=== PATIENT | female | born 1945 | race Caucasian/White ===

== ENCOUNTER → 2023-08-16 07:36 | Outpatient (REF) | payer MEDICARE, OTHER, SELFPAY ==
[2023-08-16 08:08] LABS: % Basophils 0.8 % (0-2); % Immature Granulocytes 0.5 % (0-0.5); % Lymphocytes 27.7 % (20.5-51.1); % Monocytes 5.5 % (1.7-9.3); % Neutrophils 59.5 % (42.2-75.2); Absolute Basophils 0.1 10^3/uL (0-0.2); Absolute Eosinophils 0.4 10^3/uL (0-0.7); Absolute Lymphocytes 1.7 10^3/uL (1.2-3.4); Absolute Monocytes 0.3 10^3/uL (0.1-0.6); Absolute Neutrophils 3.7 10^3/uL (1.4-6.5); Hematocrit 38.3 % (37.0-47.0); Mean Corp Hgb Conc. 33.9 g/dL (33.0-37.0); Mean Corpuscular Hgb 31.3 pg (27.0-31.0); Mean Corpuscular Volume 92.1 fL (81.0-99.0); Mean Platelet Volume 11.5 fL (7.4-10.4); Nucleated Red Blood Cells % 0 %; Platelet Count 183 10^3/uL (130-400); Red Blood Cell Count 4.16 10^6/uL (4.20-5.40); Red Cell Dist. Width 12.8 % (11.5-14.5); White Blood Cell Count 6.1 10^3/uL (4.8-10.8)
[2023-08-16 08:34] LABS: Erythrocyte Sed Rate 11 mm/hour (0-20)
[2023-08-16 08:37] LABS: ALT (SGPT) 16 U/L (0-35); AST (SGOT) 23 U/L (14-36); Albumin 3.8 g/dl (3.5-5.0); Alkaline Phosphatase 63 U/L (38-126); Blood Urea Nitrogen 23 mg/dl (7-17); Carbon Dioxide 27 mmol/L (22-30); Chloride 102 mmol/L (98-107); Glucose 118 mg/dl (70-99); HDL Cholesterol 87 mg/dl; Potassium 4.6 mmol/L (3.5-5.1); Sodium 137 mmol/L (135-145); Total Bilirubin 0.5 mg/dl (0.2-1.3); Total Cholesterol 225 mg/dl (50-199); Total Protein 6.2 g/dl (6.3-8.2); eGFR 51.43
[2023-08-16 08:39] LABS: C-Reactive Protein < 5.00 mg/L (0.0-10.00)
[2023-08-16 08:58] LABS: LDL Cholesterol, Calculated 126 mg/dl; Triglyceride 64 mg/dl (10-149); Very Low Density Lipoprotein 12 mg/dl (0-30)
== END ==
LOC: REG 07:36
PROVIDERS: ATTENDING PHYSICIAN Internal Medicine Rheumatology; FAMILY PHYSICIAN Internal Medicine Geriatric Medicine
DX: E78.2 Mixed hyperlipidemia (principal); R73.01 Impaired fasting glucose; I73.00 Raynaud's syndrome without gangrene; M19.041 Primary osteoarthritis, right hand; M47.814 Spondylosis without myelopathy or radiculopathy, thoracic region; M81.0 Age-related osteoporosis without current pathological fracture; Z51.81 Encounter for therapeutic drug level monitoring
CPT/HCPCS: 36415; 80053; 80061; 85025; 85652; 86140

== ENCOUNTER → 2023-09-25 13:29 | Outpatient (REF) | payer MEDICARE, OTHER, SELFPAY | LOC: WDC 13:29 | PROVIDERS: ATTENDING PHYSICIAN Obstetrics & Gynecology; FAMILY PHYSICIAN Internal Medicine Geriatric Medicine; REFERRING PHYSICIAN Internal Medicine Rheumatology | DX: Z12.31 Encounter for screening mammogram for malignant neoplasm of breast (principal); M81.0 Age-related osteoporosis without current pathological fracture | CPT/HCPCS: 77063; 77067; 77080 ==

== ENCOUNTER → 2023-12-04 07:27 | Outpatient (REF) | payer MEDICARE, OTHER, SELFPAY ==
[2023-12-04 10:21] LABS: HDL Cholesterol 89 mg/dl; LDL Cholesterol, Calculated 139 mg/dl; Total Cholesterol 245 mg/dl (50-199); Triglyceride 85 mg/dl (10-149); Very Low Density Lipoprotein 17 mg/dl (0-30)
[2023-12-05 15:57] LABS: Lyme Antibody Screen, EIA Negative (Negative)
== END ==
LOC: REG 07:27
PROVIDERS: ATTENDING PHYSICIAN Nurse Practitioner Family; FAMILY PHYSICIAN Internal Medicine Geriatric Medicine
DX: L28.2 Other prurigo (principal); E78.2 Mixed hyperlipidemia
CPT/HCPCS: 36415; 80061; 86618

== ENCOUNTER → 2024-02-22 08:24 | Outpatient (REF) | payer MEDICARE, OTHER, SELFPAY ==
[2024-02-22 08:55] LABS: % Basophils 0.8 % (0-2); % Eosinophils 5.5 % (0-6); % Immature Granulocytes 0.6 % (0-0.5); % Lymphocytes 28.2 % (20.5-51.1); % Monocytes 7.6 % (1.7-9.3); % Neutrophils 57.3 % (42.2-75.2); Absolute Basophils 0.1 10^3/uL (0-0.2); Absolute Eosinophils 0.3 10^3/uL (0-0.7); Absolute Lymphocytes 1.8 10^3/uL (1.2-3.4); Absolute Monocytes 0.5 10^3/uL (0.1-0.6); Absolute Neutrophils 3.6 10^3/uL (1.4-6.5); Hematocrit 36.2 % (37.0-47.0); Hemoglobin 12.4 g/dL (12.0-16.0); Mean Corp Hgb Conc. 34.3 g/dL (33.0-37.0); Mean Corpuscular Hgb 30.7 pg (27.0-31.0); Mean Corpuscular Volume 89.6 fL (81.0-99.0); Mean Platelet Volume 11.1 fL (7.4-10.4); Nucleated Red Blood Cells % 0 %; Platelet Count 165 10^3/uL (130-400); Red Blood Cell Count 4.04 10^6/uL (4.20-5.40); Red Cell Dist. Width 12.8 % (11.5-14.5); White Blood Cell Count 6.2 10^3/uL (4.8-10.8)
[2024-02-22 09:21] LABS: ALT (SGPT) 20 U/L (0-35); AST (SGOT) 29 U/L (14-36); Albumin 4.2 g/dl (3.5-5.0); Alkaline Phosphatase 74 U/L (38-126); Blood Urea Nitrogen 27 mg/dl (7-17); Calcium 9.7 mg/dl (8.4-10.2); Carbon Dioxide 28 mmol/L (22-30); Chloride 105 mmol/L (98-107); Glucose 122 mg/dl (70-99); Potassium 4.9 mmol/L (3.5-5.1); Sodium 140 mmol/L (135-145); Total Bilirubin 0.6 mg/dl (0.2-1.3); Total Protein 6.5 g/dl (6.3-8.2); eGFR 57.31
== END ==
LOC: REG 08:24
PROVIDERS: ATTENDING PHYSICIAN Internal Medicine Rheumatology; FAMILY PHYSICIAN Internal Medicine Geriatric Medicine
DX: I73.00 Raynaud's syndrome without gangrene (principal); M47.814 Spondylosis without myelopathy or radiculopathy, thoracic region; M79.641 Pain in right hand; M81.0 Age-related osteoporosis without current pathological fracture; Z51.81 Encounter for therapeutic drug level monitoring
CPT/HCPCS: 36415; 80053; 85025

== ENCOUNTER → 2024-02-27 10:15 | Outpatient (REF) | payer MEDICARE, OTHER, SELFPAY ==
[2024-02-27 11:17] LABS: % Basophils 0.8 % (0-2); % Eosinophils 5.3 % (0-6); % Immature Granulocytes 0.5 % (0-0.5); % Monocytes 6.6 % (1.7-9.3); % Neutrophils 57.8 % (42.2-75.2); Absolute Basophils 0.1 10^3/uL (0-0.2); Absolute Eosinophils 0.3 10^3/uL (0-0.7); Absolute Lymphocytes 1.8 10^3/uL (1.2-3.4); Absolute Monocytes 0.4 10^3/uL (0.1-0.6); Absolute Neutrophils 3.5 10^3/uL (1.4-6.5); Hematocrit 38.3 % (37.0-47.0); Hemoglobin 13.1 g/dL (12.0-16.0); Mean Corp Hgb Conc. 34.2 g/dL (33.0-37.0); Mean Corpuscular Hgb 31.3 pg (27.0-31.0); Mean Corpuscular Volume 91.6 fL (81.0-99.0); Mean Platelet Volume 11.7 fL (7.4-10.4); Nucleated Red Blood Cells % 0 %; Platelet Count 167 10^3/uL (130-400); Red Blood Cell Count 4.18 10^6/uL (4.20-5.40); Red Cell Dist. Width 12.7 % (11.5-14.5); White Blood Cell Count 6.1 10^3/uL (4.8-10.8)
[2024-02-27 11:35] LABS: ALT (SGPT) 18 U/L (0-35); AST (SGOT) 26 U/L (14-36); Albumin 4.4 g/dl (3.5-5.0); Alkaline Phosphatase 69 U/L (38-126); Blood Urea Nitrogen 20 mg/dl (7-17); Calcium 9.6 mg/dl (8.4-10.2); Carbon Dioxide 26 mmol/L (22-30); Chloride 103 mmol/L (98-107); Glucose 107 mg/dl (70-99); Potassium 4.5 mmol/L (3.5-5.1); Sodium 139 mmol/L (135-145); Total Bilirubin 0.8 mg/dl (0.2-1.3); Total Protein 6.6 g/dl (6.3-8.2); Uric Acid 4.6 mg/dl (2.5-6.2); eGFR 51.11
== END ==
LOC: REG 10:15
PROVIDERS: ATTENDING PHYSICIAN Internal Medicine Rheumatology; FAMILY PHYSICIAN Internal Medicine Geriatric Medicine
DX: I73.00 Raynaud's syndrome without gangrene (principal); M47.814 Spondylosis without myelopathy or radiculopathy, thoracic region; M79.641 Pain in right hand; M79.675 Pain in left toe(s); M81.0 Age-related osteoporosis without current pathological fracture; Z51.81 Encounter for therapeutic drug level monitoring
CPT/HCPCS: 36415; 73630; 80053; 84550; 85025

== ENCOUNTER → 2024-06-25 07:34 | Outpatient (REF) | payer MEDICARE, OTHER, SELFPAY ==
[2024-06-25 10:17] LABS: HDL Cholesterol 76 mg/dl; LDL Cholesterol, Calculated 98 mg/dl; Total Cholesterol 197 mg/dl (50-199); Triglyceride 116 mg/dl (10-149); Very Low Density Lipoprotein 23 mg/dl (0-30)
== END ==
LOC: REG 07:34
PROVIDERS: ATTENDING PHYSICIAN Internal Medicine Geriatric Medicine
DX: E78.2 Mixed hyperlipidemia (principal)
CPT/HCPCS: 36415; 80061

== ENCOUNTER → 2024-08-29 09:40 | Outpatient (REF) | payer MEDICARE, OTHER, SELFPAY ==
[2024-08-29 10:48] LABS: % Basophils 0.7 % (0-2); % Eosinophils 3.8 % (0-6); % Immature Granulocytes 0.4 % (0-0.5); % Lymphocytes 20.3 % (20.5-51.1); % Monocytes 7.4 % (1.7-9.3); % Neutrophils 67.4 % (42.2-75.2); Absolute Basophils 0.1 10^3/uL (0-0.2); Absolute Eosinophils 0.3 10^3/uL (0-0.7); Absolute Lymphocytes 1.4 10^3/uL (1.2-3.4); Absolute Monocytes 0.5 10^3/uL (0.1-0.6); Absolute Neutrophils 4.7 10^3/uL (1.4-6.5); Hematocrit 37.7 % (37.0-47.0); Hemoglobin 12.5 g/dL (12.0-16.0); Mean Corp Hgb Conc. 33.2 g/dL (33.0-37.0); Mean Corpuscular Hgb 30.1 pg (27.0-31.0); Mean Corpuscular Volume 90.8 fL (81.0-99.0); Mean Platelet Volume 11.9 fL (7.4-10.4); Nucleated Red Blood Cells % 0 %; Platelet Count 190 10^3/uL (130-400); Red Blood Cell Count 4.15 10^6/uL (4.20-5.40); Red Cell Dist. Width 12.9 % (11.5-14.5); White Blood Cell Count 6.9 10^3/uL (4.8-10.8)
[2024-08-29 11:35] LABS: ALT (SGPT) 19 U/L (0-35); AST (SGOT) 23 U/L (14-36); Albumin 4.1 g/dl (3.5-5.0); Alkaline Phosphatase 61 U/L (38-126); Blood Urea Nitrogen 19 mg/dl (7-17); Calcium 9.8 mg/dl (8.4-10.2); Carbon Dioxide 23 mmol/L (22-30); Chloride 106 mmol/L (98-107); Glucose 137 mg/dl (70-99); Potassium 4.7 mmol/L (3.5-5.1); Sodium 138 mmol/L (135-145); Total Bilirubin 0.7 mg/dl (0.2-1.3); Total Protein 6.4 g/dl (6.3-8.2); eGFR 57.31
== END ==
LOC: REG 09:40
PROVIDERS: ATTENDING PHYSICIAN Internal Medicine Rheumatology; FAMILY PHYSICIAN Internal Medicine Geriatric Medicine
DX: M47.814 Spondylosis without myelopathy or radiculopathy, thoracic region (principal); I73.00 Raynaud's syndrome without gangrene; M79.641 Pain in right hand; M81.0 Age-related osteoporosis without current pathological fracture; Z51.81 Encounter for therapeutic drug level monitoring
CPT/HCPCS: 36415; 80053; 85025

== ENCOUNTER 2024-09-17 22:40 | Day surgery (SDC) | payer MEDICARE, OTHER, SELFPAY ==
[2024-09-17 18:46] VITALS: BP 180/79
[2024-09-17 19:35] VITALS: BMI 25.4
[2024-09-17 19:38] VITALS: BP 166/73
[2024-09-17] MEDS: NSS 1000 IV ×2 (19:43→23:45)
--- NOTE | 2024-09-17 19:49 | ED.GENMED ---
History of Present Illness
General
Chief Complaint: Abdominal Pain
Time Seen by Provider: 09/17/24 18:59
History of Present Illness
History of Present Illness:
78-year-old female with history of hyperlipidemia and mitral regurgitation presents the emergency department for evaluation of right lower quadrant abdominal pain beginning approximately 5 to 6 hours ago. Pain is worsening since onset. Rather
sudden in nature. Dull and achy, not sharp, nonradiating, denies any associated fevers or chills. No prior abdominal surgical history
Past History
Past History
ED Past Medical History: Valvular disease
ED Past Surgical History: None
Social History
Tobacco: Former smoker
Alcohol: Occasional
Drug: None
Personal:
Living: with family
Employment: Retired
Review of Systems
Review of Systems
Allergies reviewed?: Yes
All Other Systems: ROS reviewed and negative except as documented in HPI and ROS
Phy Exam
Physical Exam
Physical Exam:
GEN: Well appearing, NAD, WDWN
HEENT: Oral mucosa moist, no scleral icterus
Cardiac: Regular rate
Lung: No respiratory distress, no tachypnea
Abdomen: Soft, marked tenderness to right lower quadrant specific to McBurney's point, no rigidity
MSK: No gross deformity or injuries
Skin: Good color, no pallor or jaundice, no rashes
Neuro: AO x3, moves all extremities freely
Psych: Calm, cooperative
Course
Orders/Labs/Results
Orders:
Orders
09/17/24 19:23
CT Abd/Pel (IV only)-DH only Urgent
Comment:
Reason For Exam: RLQ pain
0.9% Sodium Chloride 1000 ml [Nss] 1,000 ml IV BOLUS
09/17/24 19:34
Complete Blood Count/With Diff Urgent
Comprehensive Metabolic Panel Urgent
Urinalysis Reflex To Culture Urgent
Date Specimen was Collected: 09/17/24
Time Specimen was Collected: :
Urine Microscopic Reflex Cult Urgent
Urine Culture Urgent
[place]TON Source: U
Specimen Description:
Date Specimen was Collected: 09/17/24
Time Specimen was Collected: :
09/17/24 20:35
Ketorolac [Toradol] 15 mg IV NOW STA
09/17/24 21:03
Piperacillin/Tazo 3.375 Gram [Zosyn] 3.375 gram in 50 ml IV NOW
Abnormal Lab Results
09/17/24
19:34
WBC 14.2 H 10^3/uL
(4.8-10.8)
MPV 11.7 H fL
(7.4-10.4)
Abs Immat Gran (auto) 0.1 H 10^3/uL
(0-0.05)
Absolute Neuts (auto) 12.1 H 10^3/uL
(1.4-6.5)
Absolute Lymphs (auto) 1.1 L 10^3/uL
(1.2-3.4)
Absolute Monos (auto) 0.7 H 10^3/uL
(0.1-0.6)
Neutrophils % 85.3 H %
(42.2-75.2)
Lymphocytes % 7.6 L %
(20.5-51.1)
BUN 19 H mg/dl
(7-17)
Glucose 116 H mg/dl
(70-99)
Urine Ketones 1+ A
(Negative)
Ur Occult Blood Reflex 4+ A
(Negative)
Leukocyte Esterase Rfl 1+ A
(Negative)
Urine RBC 7-10 A /HPF
(0-2)
Urine Bacteria (Reflex) Few A
(Negative)
09/17/24 19:34
09/17/24 19:34
Vital Signs
Initial and Last Documented VS:
Initial Vital Signs
Temp Pulse Resp BP Pulse Ox
97.9 F 85 18 180/79 98
09/17/24 18:46 09/17/24 18:46 09/17/24 18:46 09/17/24 18:46 09/17/24 18:46
Last Documented Vital Signs
Temp Pulse Resp BP Pulse Ox
97.9 F 76 13 166/73 97
09/17/24 18:46 09/17/24 19:45 09/17/24 19:45 09/17/24 19:38 09/17/24 19:45
MDM/Problems Addressed
MDM/Problems Addressed:
78-year-old female presents with acute right lower quadrant pain found to have acute appendicitis. Case reviewed with general surgery who will admit the patient to the surgery service, IV antibiotics initiated plan for OR in the morning
*Critical Care Note
Total Time (30-74mins, 75-104mins- exclusive of procedures): Not Applicable
ED Attending Note
-
Portions of this chart may have been created with voice recognition software.� Occasional wrong word or��sound alike� substitutions may have occurred due to the inherent limitations of voice recognition software.
Discharge Plan
Departure
Patient Disposition: Admit
Date of Disposition: 09/17/24
Time of Disposition: 21:38
Admit to: Med/Surg
Presentation/result/management discussed w/ accepting MD/DO: Gen Surg
Discharge Problem:
Acute appendicitis
Prescriptions:
No Action
Advil Cold and Sinus 30-200 mg Tablet
1 tab PO DAILYPRN PRN (Reason: congestion)
Theragen Tablet
1 tab PO QPM
methenamine hippurate 1 gram Tablet
1 g PO DAILY
pantoprazole 40 mg Tablet,Delayed Release (Dr/Ec)
40 mg PO DAILYPRN PRN (Reason: gerd)
ibuprofen [Advil] 200 mg Tablet
400 mg PO Q6HPRN PRN (Reason: mild pain)
celecoxib 100 mg Capsule
100 mg PO DAILY
simethicone [Gas-X] 80 mg Tablet,Chewable
160 mg PO DAILYPRN PRN (Reason: gas)
rosuvastatin 5 mg Tablet
5 mg PO QPM
calcium carbonate-vitamin D3 [Calcium 600 + D(3)] 600 mg-10 mcg (400 unit) Tablet
1 tab PO QPM
Visbiome 112.5 billion cell Capsule
1 cap PO QPM
diclofenac sodium [Voltaren] 1 % Gel
2 g TOPICAL DAILYPRN PRN (Reason: hands)
Prolia 60 mg/mL Syringe
60 mg SC [id number]
Referrals:
UNKNOWN - PT NOT,INTERVIEWE [Family Provider] -
Interventions
Interventions:
*Risk Screen - Suicide Last Done: 09/17/24 18:46
*General Assessment Last Done: 09/17/24 18:46
*Neglect/Abuse Screening Last Done: 09/17/24 18:46
*ED- Fall Risk Assessment Last Done: 09/17/24 19:14
*ED COVID-19 Vaccine History Last Done: 09/17/24 19:14
YV-[id number]-[id number] Assessment Last Done: 09/17/24 19:14
Discharge Date and Time
Print Language: ARABIC
[2024-09-17 19:51] LABS: % Basophils 0.3 % (0-2); % Eosinophils 1.6 % (0-6); % Immature Granulocytes 0.4 % (0-0.5); % Lymphocytes 7.6 % (20.5-51.1); % Monocytes 4.8 % (1.7-9.3); % Neutrophils 85.3 % (42.2-75.2); Absolute Eosinophils 0.2 10^3/uL (0-0.7); Absolute Immature Granulocytes 0.1 10^3/uL (0-0.05); Absolute Lymphocytes 1.1 10^3/uL (1.2-3.4); Absolute Monocytes 0.7 10^3/uL (0.1-0.6); Absolute Neutrophils 12.1 10^3/uL (1.4-6.5); Hematocrit 37.7 % (37.0-47.0); Hemoglobin 13.2 g/dL (12.0-16.0); Mean Corpuscular Hgb 30.8 pg (27.0-31.0); Mean Corpuscular Volume 87.9 fL (81.0-99.0); Mean Platelet Volume 11.7 fL (7.4-10.4); Nucleated Red Blood Cells % 0 %; Platelet Count 151 10^3/uL (130-400); Red Blood Cell Count 4.29 10^6/uL (4.20-5.40); Urine Albumin Negative (Neg - Trace); Urine Bilirubin Negative (Negative); Urine Character Clear (Clear); Urine Color Yellow; Urine Glucose Negative (Negative); Urine Ketone 1+ (Negative); Urine Leukocyte 1+ (Negative); Urine Nitrite Negative (Negative); Urine Occult Blood 4+ (Negative); Urine Urobilinogen Negative (Neg - 1+); White Blood Cell Count 14.2 10^3/uL (4.8-10.8)
[2024-09-17 20:00] VITALS: BP 130/95
[2024-09-17 20:03] LABS: Urine Bacteria Few (Negative)
[2024-09-17 20:04] LABS: ALT (SGPT) 19 U/L (0-35); AST (SGOT) 23 U/L (14-36); Albumin 4.3 g/dl (3.5-5.0); Alkaline Phosphatase 72 U/L (38-126); Blood Urea Nitrogen 19 mg/dl (7-17); Calcium 9.2 mg/dl (8.4-10.2); Carbon Dioxide 25 mmol/L (22-30); Chloride 104 mmol/L (98-107); Estimated Creatinine Clearance 44 ml/min; Glucose 116 mg/dl (70-99); Potassium 3.9 mmol/L (3.5-5.1); Sodium 136 mmol/L (135-145); Total Bilirubin 0.8 mg/dl (0.2-1.3); Total Protein 6.7 g/dl (6.3-8.2); eGFR > 60.00
[2024-09-17] MEDS: TORADOL 15 MG IV (20:38)
[2024-09-17] MEDS: ZOSYN 50 IV (21:45)
--- NOTE | 2024-09-17 22:50 | HPS.HSE ---
Addendum entered and electronically signed by Rito Hassan MD 09/18/24 09:37:
Patient seen and examined independently of admitting nurse practitioner. Agree with documented history and physical consistent my current examination and evaluation.
HPI: Patient is a 78-year-old female with developed the acute onset of abdominal pain yesterday while driving home from [place]. Periumbilical but promptly localized to the right lower quadrant. Her pain persisted with anorexia and nausea
prompting emergency department evaluation. Workup consistent with acute appendicitis.
Past medical history: Osteoporosis, heart murmur, recurrent UTI past surgical history: Lap tubal
AFVSS
NAD AAOx3
ABD: Softly distended, tenderness palpation generalized but localizing rebound and guarding in the right lower quadrant at McBurney's point
CT imaging personally reviewed. Distended fluid-filled appendix with surrounding inflammatory changes consistent with acute appendicitis. No well-organized abscess but there may be some free fluid around the appendix indicative of possible
perforation. No significant thickening of the base of the cecum or terminal ileum/ileocecal valve.
Assessment: 78-year-old female presenting with acute appendicitis.
Reviewed with patient history, examination and CT imaging consistent with acute appendicitis. Discussed both operative and nonoperative management options and associated risks/benefits of approaches. Patient is in agreement to proceed with
appendectomy.
Laparoscopic appendectomy reviewed in detail with the patient. Discussed operative technique utilizing diagrams or drawings, alternative management options, benefits and potential risks such as but not limited to bleeding, infectious or wound
healing complications, iatrogenic injury to surrounding viscera. Discussed the typical postoperative recovery pending operative findings.
Any of the patient's concerns or questions were fully addressed and informed consent was obtained.
Plan: OR for laparoscopic appendectomy.
Empiric antibiotic coverage with Zosyn initiated in emergency department and will be continued.
Nothing by mouth, IV fluid hydration and supportive care awaiting operative room availability.
SCDs for DVT prophylaxis
Original Note:
Family Physician
-
Family Physician: Zuhair Mackay
Chief Complaint
-
'Abdomen pain'
History of Present Illness
78 year old patient with the history of hyperlipidemia, Mitral Regurgitation, Heart murmur, GERD, and Osteoporosis, presents to ER with the complain of Right lower quadrant abdomen pain. Reports 'sudden piercing pain' at the RLQ started around 1
PM which worsened over the hours, states its more of 'achy, dull pain' at the time of the admission. Reports chills, no fever, denies nausea/vomiting, shortness of breath, chest pain at present. Last BM 09/17 AM normal stool without blood. Voiding
without difficulty. Hx of Tubal Ligation
Medical History
Past Medical History
Past Medical History: Reports GERD and Hypercholesterolemia
Additional Past Medical History:
Osteoporosis, Heart murmur, Recurrent UTI on Methenamine Hippurate
Past Surgical History: Reports Gynocological (Tubal ligation ) and Orthopedic (Arthroscopy knee, bunionectomy )
Social History
Tobacco: Former Smoker
Alcohol: Occasional
Drug: None
Personal:
Living: With Family
Employment: Retired
Family History
Family History: Not pertinent
Allergies / Home Medications
Allergies reflects when Allergies were last updated in [facility].
Home Medications with original date entered in [facility]
Allergy/Medication List:
Allergies
Allergy/AdvReac Type Severity Reaction Status Date / Time
No Known Allergies Allergy Verified 09/17/24 18:46
Home Medications
Lactobac no.2-Bifidobac no.1-S. thermo 112.5 billion cell capsule (Visbiome) 1 cap PO QPM 09/17/24
calcium 600 mg (as carbonate)-vitamin D3 10 mcg (400 unit) tablet (Calcium 600 + D(3)) 1 tab PO QPM 09/17/24
celecoxib 100 mg capsule 100 mg PO DAILY 09/17/24
denosumab 60 mg/mL subcutaneous syringe (Prolia) 60 mg SC [id number] 09/17/24
diclofenac sodium 1 % topical gel 2 g topical DAILYPRN PRN hands 09/17/24
ibuprofen 200 mg tablet (Advil) 400 mg PO Q6HPRN PRN mild pain 09/17/24
methenamine hippurate 1 gram tablet 1 g PO DAILY 09/17/24
pantoprazole 40 mg tablet,delayed release 40 mg PO DAILYPRN PRN gerd 09/17/24
pseudoephedrine-ibuprofen 30 mg-200 mg tablet (Advil Cold and Sinus) 1 tab PO DAILYPRN PRN congestion 09/17/24
rosuvastatin 5 mg tablet 5 mg PO QPM 09/17/24
simethicone 80 mg chewable tablet 160 mg PO DAILYPRN PRN gas 09/17/24
therapeutic multivitamin 1 tab PO QPM 09/17/24
Review of Systems
-
History Source: Patient
A 12 point ROS was completed and negative except as noted: Yes
Constitutional: Reports Chills
EENT: Reports No Symptoms
Respiratory: Reports No Symptoms
Cardiac: Reports No Symptoms
Abdomen/GI: Reports Abdominal Pain
: Reports No Symptoms
Musculoskeletal: Reports No Symptoms
Skin: Reports No Symptoms
Neurological: Reports No Symptoms
Endocrine: Reports No Symptoms
Hematologic/Lymphatic: Reports No Symptoms
Psych: Reports No Symptoms
Physical Exam
Vital Signs
Vital Signs
Temp Pulse Resp BP Pulse Ox
97.9 F 81 27 130/95 91
09/17/24 18:46 09/17/24 22:45 09/17/24 22:45 09/17/24 20:00 09/17/24 22:30
Physical Exam
General: Well Developed, Well Nourished, No Apparent Distress and Conversant
HEENT: NormoCephalic, Moist mucous membranes and Atraumatic
Respiratory: Clear and Non Labored Respirations
Cardiac: S1/S2, Regular Rhythm and Murmur
Breast: Deferred by me
GI: Soft, Non Distended, Normal Bowel Sounds and Tender (RLQ McBurney's point , mild rebound tenderness); No Organomegaly
Rectal: Deferred by Provider
Genito-urinary: No costovertebral tender
Musculoskeletal: No Clubbing, No Cyanosis and No Edema
Skin: Warm and Dry; No Rash
Neuro: Awake, AO x 3 and Nonfocal/grossly intact
Hematologic/Lymphatic: No Lymphadenopathy
Psych: Calm and Intact Judgment/Insight
Laboratory Results
-
09/17/24 19:34
09/17/24 19:34
Laboratory Results
Total Bilirubin 0.8 mg/dl (0.2-1.3) 09/17/24 19:34
AST 23 U/L (14-36) 09/17/24 19:34
ALT 19 U/L (0-35) 09/17/24 19:34
Alkaline Phosphatase 72 U/L (38-126) 09/17/24 19:34
Data Reviewed
-
CT Scan: Report Reviewed by me
Lab Data: Labs Reviewed by me
Impression/Plan
-
78 y/o presents to ER with Abdomen pain
# RLQ Abdomen pain likely due to Acute Appendicitis
-CT abdomen: CT findings compatible with appendicitis. There is significant adjacent inflammatory stranding of the fat with adjacent edema. No evidence for focal abscess.
-WBC 14.2
-continue IVF
-Continue IV Zosyn
-Continue Toradol
-Admit to Dr. Carr
# Hx of Osteoporosis
-Celecoxib 100mg PO Daily will hold now
- Prolia SC Q6 months
# Recurrent UTI
-on Methenamine Hippurate daily will hold
-UA
# Hyperlipidemia
-Continue Rosuvastatin
# Hx of Heart murmur mild
-diagnosed at age 39
-EKG AM
Full Code
SCD's
[2024-09-17 23:35] VITALS: BP 124/66
[2024-09-17 23:36] VITALS: BMI 25.2
[2024-09-18] VITALS (12 sets, daily range): BP systolic 98–123; BP diastolic 47–75
[2024-09-18] MEDS: MORPHINE SULFATE 2 MG IV ×2 (00:49→08:40)
--- NOTE | 2024-09-18 02:37 | PTCARENOTE ---
Pt arrived from the ED at 23:15 with a dx Acute Appendicitis PMH heart murmur, arthritis, anemia, cancer melanoma/aquamous facial skin cancer. Pt AOx3, bed in a low position, call light in reach, care on-going.
[2024-09-18] MEDS: ZOSYN 50 IV ×3 (03:41→21:03)
[2024-09-18 08:54] LABS: Hepatitis C Antibody Negative (Negative)
[2024-09-18] MEDS: NSS IV ×2 (09:20→18:05)
--- NOTE | 2024-09-18 09:37 | W.SUR.PREOP ---
Pre-Operative Surgical Note
-
I have examined this patient prior to the performance of the scheduled procedure.
The patient's condition is unchanged from the time of the current History and
Physical and the patient is able to undergo the scheduled procedure.
--- NOTE | 2024-09-18 11:07 | W.IMMPOSTOP ---
Addendum entered and electronically signed by Rito Hassan MD 09/18/24 11:22:
#[id number]
Original Note:
Surgical Immed Post Op Note
-
Primary Surgeon: Rito Hassan MD
Assisting Surgeon: BULL Cuellar
Pre-op Diagnosis: Acute appendicitis
Post-op Diagnosis: Acute appendicitis with localized peritonitis
Procedure Performed: Laparoscopic appendectomy
Anesthesia Type: GETA +0.25% Marcaine
Specimen / Cultures: Appendix
Estimated Blood Loss: 4 mL
Complications: None immediate
Operative Findings: Acutely inflamed appendix with surrounding inflammatory adhesions. No purulence. No abscess. No perforation or disruption of appendix with appendectomy. Base of appendix clean. Harmonic scalpel to divide mesoappendix. Endo
THOMAS moon to take the base.
Plan: Advance diet as tolerated
Continue Zosyn today
Probable DC home tomorrow without further antibiotic coverage.
Updated patient's son via phone call postop
--- NOTE | 2024-09-18 11:42 | CM ---
Unable to complete initial assessment - pt in OR
[2024-09-18] MEDS: ZOSYN IV (11:54)
[2024-09-18] MEDS: NSS 1000 IV (14:26)
--- NOTE | 2024-09-18 16:09 | CM ---
Initial assessment completed
Pt lives in a 1 story home with her son; 1STE
Independent at baseline, drives
DME - none
SNF/HH - no past hx
Has ride at discharge
PCP - Zuhair Mackay
Pharm - [facility]
Plan - anticipate home no needs
[2024-09-18] MEDS: TORADOL 10 MG IV (16:20)
[2024-09-18] MEDS: CRESTOR 5 MG PO (17:22)
[2024-09-19 03:00] VITALS: BP 105/53
[2024-09-19] MEDS: ZOSYN 50 IV ×2 (03:53→10:16)
[2024-09-19] MEDS: TORADOL 10 MG IV (03:59)
[2024-09-19] MEDS: NSS IV (05:05)
[2024-09-19 07:35] VITALS: BP 108/53
--- NOTE | 2024-09-19 10:09 | W.PN.GS2 ---
Today's Communication / Plan
-
d/c home
Assessment / Plan
-
78 yo female presenting with appendicitis now POD #1 lap appi
AFVSS
Doing well post operatively
--Continue diet as tolerated
--Analgesics prn
--Dispo planning
Subjective Data
-
Date of Service: September 19, 2024
Patient seen and examined at bedside with Dr. Denise. Minimal discomfort. Tolerating diet without N/V. Passing flatus. Voiding well.
Objective Data
-
Intake and Output
09/18/24 09/19/24 09/20/24
06:59 06:59 06:59
Intake Total 775 / 775 1805 / 1805
Balance 775 / 775 1805 / 1805
Intake:
Oral fluids 1070 / 1070
IV fluids (Total) 725 / 725 635 / 635
Normosol 100 / 100
IV piggybacks 50 / 50 100 / 100
Other:
Number of approximated MODERATE 2 2
amounts of urine
Vital Signs
Temp Pulse Resp BP Pulse Ox
98.0 F 69 16 108/53 97
09/19/24 07:35 09/19/24 07:35 09/19/24 07:35 09/19/24 07:35 09/19/24 07:35
Lab Results
09/17/24 19:34
09/17/24 19:34
Calcium 9.2 mg/dl (8.4-10.2) 09/17/24 19:34
Total Bilirubin 0.8 mg/dl (0.2-1.3) 09/17/24 19:34
AST 23 U/L (14-36) 09/17/24 19:34
ALT 19 U/L (0-35) 09/17/24 19:34
Alkaline Phosphatase 72 U/L (38-126) 09/17/24 19:34
Total Protein 6.7 g/dl (6.3-8.2) 09/17/24 19:34
Albumin 4.3 g/dl (3.5-5.0) 09/17/24 19:34
Physical Exam
-
NAD
ABD soft, nt, nd
Incisions well approximated, intact glue
[2024-09-19] MEDS: PROTONIX 40 MG PO (10:16)
[2024-09-19] MEDS: HIPREX 1 GRAM PO (10:16)
--- NOTE | 2024-09-19 10:22 | CM ---
Chart reviewed
Poss d/c today
Pt reports will have transport home
Given IMM
Plan - home no needs
--- NOTE | 2024-09-19 11:32 | W.DS.TRANS ---
DC Summary - [employer]
-
Discharge Instructions:
Discharge Diagnosis/Procedures Acute appendicitis. Laparoscopic appendectomy
Diet As tolerated,Regular
Additional Diets Smaller meals initially after surgery as
abdominal bloating and distention are common for
the first few days
Activity No strenuous activity
Additional Activity No lifting over 20 pounds for 2 to 3 weeks
postop.
Driving Restrictions No driving for 24 hours
Bathing Restrictions OK to Shower
Wound Care Glue at surgical sites typically peels off in 2
to 3 weeks
Instructions:
Stand-Alone Forms:
Changes to Home Medications: No
Discharge Medications:
DC Medications w/original date entered in [facility]
Lactobac no.2-Bifidobac no.1-S. thermo 112.5 billion cell capsule (Visbiome) 1 cap PO QPM Gastrointestinal Issue 09/17/24
calcium 600 mg (as carbonate)-vitamin D3 10 mcg (400 unit) tablet (Calcium 600 + D(3)) 1 tab PO QPM Supplement 09/17/24
celecoxib 100 mg capsule 100 mg PO DAILY Pain 09/17/24
denosumab 60 mg/mL subcutaneous syringe (Prolia) 60 mg SC [id number] Osteoporosis/Bone loss 09/17/24
diclofenac sodium 1 % topical gel 2 g topical DAILYPRN PRN hands 09/17/24
methenamine hippurate 1 gram tablet 1 g PO DAILY Urinary Issue 09/17/24
pantoprazole 40 mg tablet,delayed release 40 mg PO DAILYPRN PRN gerd 09/17/24
rosuvastatin 5 mg tablet 5 mg PO QPM High Cholesterol 09/17/24
simethicone 80 mg chewable tablet 160 mg PO DAILYPRN PRN gas 09/17/24
therapeutic multivitamin 1 tab PO QPM Supplement 09/17/24
acetaminophen 325 mg tablet 650 mg (2 x 325 mg) PO Q4HPRN PRN mild pain #1 tab 09/19/24
oxycodone 5 mg tablet 5 mg PO Q4HPRN PRN breakthrough/severe pain #5 tabs 09/19/24
Home Medication Changes
Pending Results: No
[2024-09-19 11:45] VITALS: BP 106/51
== END 2024-09-19 13:05 | disposition home or self-care (01) ==
LOC: SDS 22:40
PROVIDERS: Physician Assistant; ATTENDING PHYSICIAN Surgery; EMERGENCY PHYSICIAN Emergency Medicine; FAMILY PHYSICIAN Internal Medicine Geriatric Medicine
DX: K35.30 Acute appendicitis with localized peritonitis, without perforation or gangrene (principal); M81.0 Age-related osteoporosis without current pathological fracture; Z87.440 Personal history of urinary (tract) infections; E78.00 Pure hypercholesterolemia, unspecified
CPT/HCPCS: 44970; 88304; 74177; 80053; 81003; 81015; 85025; 86803; 87086; 93005; 96361; 96374; 96375; 99285; Q9967

== ENCOUNTER → 2024-09-22 12:32 | Outpatient (REF) | payer MEDICARE, OTHER, SELFPAY ==
[2024-09-22 13:01] LABS: % Basophils 1.1 % (0-2); % Eosinophils 6.4 % (0-6); % Immature Granulocytes 2.4 % (0-0.5); % Lymphocytes 30.7 % (20.5-51.1); % Monocytes 7.3 % (1.7-9.3); % Neutrophils 52.1 % (42.2-75.2); Absolute Basophils 0.1 10^3/uL (0-0.2); Absolute Eosinophils 0.4 10^3/uL (0-0.7); Absolute Immature Granulocytes 0.2 10^3/uL (0-0.05); Absolute Monocytes 0.5 10^3/uL (0.1-0.6); Absolute Neutrophils 3.4 10^3/uL (1.4-6.5); Hematocrit 37.7 % (37.0-47.0); Hemoglobin 12.7 g/dL (12.0-16.0); Mean Corp Hgb Conc. 33.7 g/dL (33.0-37.0); Mean Corpuscular Hgb 30.8 pg (27.0-31.0); Mean Corpuscular Volume 91.3 fL (81.0-99.0); Mean Platelet Volume 11.3 fL (7.4-10.4); Nucleated Red Blood Cells % 0 %; Platelet Count 206 10^3/uL (130-400); Red Blood Cell Count 4.13 10^6/uL (4.20-5.40); Red Cell Dist. Width 13.1 % (11.5-14.5); White Blood Cell Count 6.6 10^3/uL (4.8-10.8)
[2024-09-22 13:29] LABS: Blood Urea Nitrogen 20 mg/dl (7-17); Calcium 11.1 mg/dl (8.4-10.2); Carbon Dioxide 28 mmol/L (22-30); Chloride 102 mmol/L (98-107); Glucose 103 mg/dl (70-99); Potassium 4.2 mmol/L (3.5-5.1); Sodium 140 mmol/L (135-145); eGFR 51.11
== END ==
LOC: REG 12:32
PROVIDERS: ATTENDING PHYSICIAN Surgery; FAMILY PHYSICIAN Internal Medicine Geriatric Medicine
DX: Z90.49 Acquired absence of other specified parts of digestive tract (principal); R52 Pain, unspecified; R50.9 Fever, unspecified
CPT/HCPCS: 36415; 80048; 85025

== ENCOUNTER → 2024-10-01 13:28 | Outpatient (REF) | payer MEDICARE, OTHER, SELFPAY ==
[2024-10-01 13:52] LABS: % Basophils 0.7 % (0-2); % Eosinophils 2.4 % (0-6); % Immature Granulocytes 0.6 % (0-0.5); % Lymphocytes 19.2 % (20.5-51.1); % Monocytes 5.4 % (1.7-9.3); % Neutrophils 71.7 % (42.2-75.2); Absolute Basophils 0.1 10^3/uL (0-0.2); Absolute Eosinophils 0.2 10^3/uL (0-0.7); Absolute Immature Granulocytes 0.1 10^3/uL (0-0.05); Absolute Lymphocytes 1.6 10^3/uL (1.2-3.4); Absolute Monocytes 0.5 10^3/uL (0.1-0.6); Absolute Neutrophils 5.9 10^3/uL (1.4-6.5); Hematocrit 39.1 % (37.0-47.0); Hemoglobin 13.3 g/dL (12.0-16.0); Mean Corpuscular Hgb 30.9 pg (27.0-31.0); Mean Corpuscular Volume 90.9 fL (81.0-99.0); Mean Platelet Volume 10.9 fL (7.4-10.4); Nucleated Red Blood Cells % 0 %; Platelet Count 193 10^3/uL (130-400); Red Cell Dist. Width 13.1 % (11.5-14.5); White Blood Cell Count 8.3 10^3/uL (4.8-10.8)
== END ==
LOC: REG 13:28
PROVIDERS: ATTENDING PHYSICIAN Surgery
DX: R10.84 Generalized abdominal pain (principal); R19.7 Diarrhea, unspecified; Z90.49 Acquired absence of other specified parts of digestive tract
CPT/HCPCS: 36415; 85025; 87045; 87046; 87324; 87427; 87449

== ENCOUNTER → 2024-10-02 09:41 | Outpatient (REF) | payer MEDICARE, OTHER, SELFPAY | LOC: RAD 09:41 | PROVIDERS: ATTENDING PHYSICIAN Surgery; FAMILY PHYSICIAN Internal Medicine Geriatric Medicine | DX: Z90.49 Acquired absence of other specified parts of digestive tract (principal); R19.7 Diarrhea, unspecified; R10.84 Generalized abdominal pain | CPT/HCPCS: 74177; Q9967 ==

== ENCOUNTER 2024-10-06 06:05 | Emergency (ER) | payer MEDICARE, OTHER, SELFPAY ==
[2024-10-06 06:08] VITALS: BP 140/64
[2024-10-06 06:31] LABS: % Eosinophils 3.4 % (0-6); % Immature Granulocytes 0.4 % (0-0.5); % Lymphocytes 26.5 % (20.5-51.1); % Monocytes 6.7 % (1.7-9.3); Absolute Basophils 0.1 10^3/uL (0-0.2); Absolute Eosinophils 0.2 10^3/uL (0-0.7); Absolute Lymphocytes 1.8 10^3/uL (1.2-3.4); Absolute Monocytes 0.5 10^3/uL (0.1-0.6); Absolute Neutrophils 4.3 10^3/uL (1.4-6.5); Hematocrit 38.1 % (37.0-47.0); Hemoglobin 12.7 g/dL (12.0-16.0); Mean Corp Hgb Conc. 33.3 g/dL (33.0-37.0); Mean Corpuscular Hgb 30.3 pg (27.0-31.0); Mean Corpuscular Volume 90.9 fL (81.0-99.0); Mean Platelet Volume 11.5 fL (7.4-10.4); Nucleated Red Blood Cells % 0 %; Platelet Count 190 10^3/uL (130-400); Red Blood Cell Count 4.19 10^6/uL (4.20-5.40); Red Cell Dist. Width 13.2 % (11.5-14.5); White Blood Cell Count 6.9 10^3/uL (4.8-10.8)
[2024-10-06 06:40] LABS: Urine Albumin 1+ (Neg - Trace); Urine Bilirubin Negative (Negative); Urine Character Slightly Cloudy (Clear); Urine Color Yellow; Urine Glucose Negative (Negative); Urine Ketone Negative (Negative); Urine Leukocyte 2+ (Negative); Urine Nitrite Negative (Negative); Urine Occult Blood 1+ (Negative); Urine Specific Gravity 1.015 (<1.030); Urine Urobilinogen Negative (Neg - 1+)
[2024-10-06 06:42] LABS: ALT (SGPT) 20 U/L (0-35); AST (SGOT) 22 U/L (14-36); Albumin 4.6 g/dl (3.5-5.0); Alkaline Phosphatase 85 U/L (38-126); Blood Urea Nitrogen 15 mg/dl (7-17); Calcium 10.2 mg/dl (8.4-10.2); Carbon Dioxide 27 mmol/L (22-30); Chloride 106 mmol/L (98-107); Glucose 117 mg/dl (70-99); Sodium 143 mmol/L (135-145); Total Bilirubin 0.5 mg/dl (0.2-1.3); Total Protein 6.8 g/dl (6.3-8.2); eGFR 57.31
[2024-10-06 07:14] LABS: Urine Red Blood Cell 0-2 /HPF (0-2); Urine Squamous Cell 0-2 /LPF (Few)
[2024-10-06 07:15] LABS: Urine Amorphous Seen; Urine Bacteria Few (Negative)
--- NOTE | 2024-10-06 08:53 | ED.GENMED ---
History of Present Illness
General
Chief Complaint: Abdominal Pain
Source: patient
Exam Limitations: none
Time Seen by Provider: 10/06/24 08:49
Nursing documentation reviewed up to this point in time: agreed with
History of Present Illness
History of Present Illness:
Patient is a 78-year-old female who presents to the ER for evaluation. Patient reports she had an appendectomy [address] Hassan. She reports several days after she had a lot of diarrhea and has had intermittent diarrhea since. She was
seen by Dr. Hassan and had an outpatient CAT scan and stool cultures. The outpatient CAT scan was done 4 days ago which was negative. In addition her stool cultures were negative. She reports last night she was awoken around 2:30 AM with pain in
the right lower quadrant and in her right back. She also believes she has a UTI. For the past several days she has had some urinary frequency and burning. She does report she has a history of chronic UTIs however is followed by urology and for
the past several years has not had a UTI because she has been maintained on Methenamine.
Past History
Past History
ED Past Medical History: Valvular disease
ED Past Surgical History: None
Social History
Tobacco: Former smoker
Alcohol: Occasional
Drug: None
Personal:
Living: with family
Employment: Retired
Review of Systems
Review of Systems
Allergies reviewed?: Yes
Constitutional: Reports no symptoms; Denies fever, fatigue or chills
Respiratory: Reports no symptoms
Cardiac: Reports no symptoms
ABD/GI: Reports abdominal pain, nausea and diarrhea; Denies vomiting
: Reports dysuria and urgency
Musculoskeletal: Reports back pain (mild right lower back pain )
Skin: Reports no symptoms
Neurological: Reports no symptoms
Psychiatric: Reports no symptoms
Phy Exam
General Physical Exam
General Presentation: no apparent distress
General age: appears stated age
General Skin: warm and dry
General Habitus: normal
General Mental: alert
General Hydration: appears well hydrated
Gastrointestinal Exam
Gastrointestinal Exam: normal bowel sounds, non tender and soft
Neurological Exam
Neurological Exam: alert and oriented x3
Musculoskeletal Exam
Musculoskeletal Exam: full ROM
Skin Exam
Skin Exam: normal color and warm/dry
Psychiatric Exam
Psychiatric Exam: normal mood/affect
Sepsis
Sepsis Screening
Sepsis Assessment: Sepsis Ruled Out
Sepsis Screen
Sepsis Screen: Sepsis Ruled Out
Date: 10/06/24
Time: 11:51
Course
Orders/Labs/Results
Orders:
Orders
10/06/24 06:20
Complete Blood Count/With Diff Urgent
Comprehensive Metabolic Panel Urgent
Urinalysis Reflex To Culture Urgent
Date Specimen was Collected: 10/06/24
Time Specimen was Collected: 06:12
Urine Microscopic Reflex Cult Urgent
Urine Culture Urgent
[place] Source: U
Specimen Description:
Date Specimen was Collected: 10/06/24
Time Specimen was Collected: 06:12
10/06/24 09:19
CT Abd/pelvis W Iv Cont Urgent
Comment:
Reason For Exam: rlq pain and R flank pain s/p appendecomy/uti s/s
10/06/24 09:20
0.9% Sodium Chloride 1000 ml [Nss] 1,000 ml IV BOLUS
10/06/24 10:31
CefTRIAXone [Rocephin] 1,000 mg IV NOW STA
Abnormal Lab Results
10/06/24
06:20
RBC 4.19 L 10^6/uL
(4.20-5.40)
MPV 11.5 H fL
(7.4-10.4)
Glucose 117 H mg/dl
(70-99)
Ur Occult Blood Reflex 1+ A
(Negative)
Leukocyte Esterase Rfl 2+ A
(Negative)
Urine Bacteria (Reflex) Few A
(Negative)
Urine Albumin (Reflex) 1+ A
(Neg - Trace)
10/06/24 06:20
10/06/24 06:20
Vital Signs
Initial and Last Documented VS:
Initial Vital Signs
Temp Pulse Resp BP Pulse Ox
97.6 F 66 18 140/64 97
10/06/24 06:08 10/06/24 06:08 10/06/24 06:08 10/06/24 06:08 10/06/24 06:08
Last Documented Vital Signs
Temp Pulse Resp BP Pulse Ox
97.6 F 58 15 119/64 97
10/06/24 06:08 10/06/24 11:30 10/06/24 11:30 10/06/24 11:00 10/06/24 11:30
Slip Caster consulted with Physician
Slip Caster consulted with physician?: Yes
Name of Physician Consulted: Melissa
MDM/Problems Addressed
Differential Diagnosis Includes:
Not limited to UTI, pyelonephritis less likely kidney stone
MDM/Problems Addressed:
As documented patient is a 78-year-old female who presents to the ER for evaluation. Patient as documented had previous appendectomy 2 weeks ago and after that had complications with diarrhea. She saw surgery and had an outpatient CAT scan which
was unremarkable. She does have a history of chronic UTI in the past however has been UTI free maintained on methenamine however patient presents today with complaints of right lower abdomen/flank pain and urinary frequency and burning. Patient
presents awake alert no acute distress she is afebrile with a normal white count stable hemoglobin. Urinalysis reviewed, urine is slightly cloudy there is 2+ leukocytes and bacteria with symptoms would recommend treating for UTI. Case reviewed ED
physician. CAT scan was done and unremarkable again. Patient incidentally has a follow-up appointment with surgery later today which she will be instructed to keep.
Patient was given first dose of Rocephin here in the ER.
*Radiology
Radiology exam reviewed: radiology read reviewed
*Pulse Oximetry
Patient hypoxic: no
*Critical Care Note
Total Time (30-74mins, 75-104mins- exclusive of procedures): Not Applicable
Data Reviewed
Review of Other/Old Records Reveals: Labs, Radiology Studies and Other (Previous urine culture results reviewed)
Source: patient
ED Attending Note
-
Portions of this chart may have been created with voice recognition software.� Occasional wrong word or��sound alike� substitutions may have occurred due to the inherent limitations of voice recognition software.
Discharge Plan
Departure
Patient Disposition: Home (Routine Discharge)
Date of Disposition: 10/06/24
Time of Disposition: 11:47
Patient with high blood pressure during this ER visit?: Yes
Condition: Fair
Covid-19: Not Applicable
Discharge Problem:
Acute UTI
Instructions: Urinary tract infections in adults, BLOOD PRESSURE
Prescriptions:
New
cephalexin 500 mg capsule
500 mg PO Q6H Qty: 28 0RF
No Action
therapeutic multivitamin Tablet
1 tab PO QPM
methenamine hippurate 1 gram Tablet
1 g PO DAILY
pantoprazole 40 mg Tablet,Delayed Release (Dr/Ec)
40 mg PO DAILYPRN PRN (Reason: gerd)
celecoxib 100 mg Capsule
100 mg PO DAILY
simethicone 80 mg Tablet,Chewable
160 mg PO DAILYPRN PRN (Reason: gas)
rosuvastatin 5 mg Tablet
5 mg PO QPM
calcium carbonate-vitamin D3 [Calcium 600 + D(3)] 600 mg-10 mcg (400 unit) Tablet
1 tab PO QPM
Visbiome 112.5 billion cell Capsule
1 cap PO QPM
diclofenac sodium 1 % Gel
2 g TOPICAL DAILYPRN PRN (Reason: hands)
Prolia 60 mg/mL Syringe
60 mg SC [id number]
acetaminophen [acetaminophen] 325 mg tablet
650 mg PO Q4HPRN PRN (Reason: mild pain) Qty: 1 0RF
oxycodone 5 mg tablet
5 mg PO Q4HPRN PRN (Reason: breakthrough/severe pain) Qty: 5 0RF
Referrals:
Zuhair Mackay MD [Family Provider] -
Rito Hassan MD [Active] -
Activity Restrictions/Additional Instructions:
As discussed you will be treated for UTI. You were given first dose of antibiotics intravenously here in the hospital and a prescription was sent to your pharmacy. Take as directed. Follow-up with your surgeon as scheduled today and also your
family doctor for reevaluation of UTI. It is recommended that you have a repeat urinalysis in the next week. Return if any worsening of symptoms of increased pain, nausea vomiting fever chills.
Interventions
Interventions:
*Risk Screen - Suicide Last Done: 10/06/24 06:08
*General Assessment Last Done: 10/06/24 09:10
*Neglect/Abuse Screening Last Done: 10/06/24 06:08
*ED- Fall Risk Assessment Last Done: 10/06/24 09:10
*ED COVID-19 Vaccine History Last Done: 10/06/24 09:10
VT-Azguvi-Xmjyeicfub Assessment Last Done: 10/06/24 09:10
Discharge Date and Time
Print Language: ALGERIAN
[2024-10-06 09:09] VITALS: BMI 22.5
[2024-10-06 09:11] VITALS: BP 131/61
[2024-10-06] MEDS: NSS 1000 IV (09:25)
[2024-10-06 10:00] VITALS: BP 117/67
[2024-10-06] MEDS: ROCEPHIN 1000 MG IV (10:44)
[2024-10-06 11:00] VITALS: BP 119/64
== END 2024-10-06 12:16 | disposition home or self-care (01) ==
LOC: EMR 06:05
PROVIDERS: Emergency Medicine; EMERGENCY PHYSICIAN Emergency Medicine; FAMILY PHYSICIAN Internal Medicine Geriatric Medicine
DX: N39.0 Urinary tract infection, site not specified (principal); R03.0 Elevated blood-pressure reading, without diagnosis of hypertension; Z87.440 Personal history of urinary (tract) infections; Z87.891 Personal history of nicotine dependence
CPT/HCPCS: 99285; 96374; 96361; 74177; 80053; 81003; 81015; 85025; 87086; Q9967

== ENCOUNTER → 2024-10-31 10:17 | Outpatient (REF) | payer MEDICARE, OTHER, SELFPAY ==
[2024-10-31 12:37] LABS: Urine Albumin Negative (Neg - Trace); Urine Bilirubin Negative (Negative); Urine Character Clear (Clear); Urine Color Yellow; Urine Glucose Negative (Negative); Urine Ketone Negative (Negative); Urine Leukocyte Negative (Negative); Urine Nitrite Negative (Negative); Urine Occult Blood 2+ (Negative); Urine Urobilinogen Negative (Neg - 1+)
[2024-10-31 13:54] LABS: Urine Bacteria Few (Negative); Urine Red Blood Cell 0-2 /HPF (0-2); Urine Squamous Cell 0-2 /LPF (Few); Urine White Cell 0-2 /HPF (0-5)
== END ==
LOC: REG 10:17
PROVIDERS: ATTENDING PHYSICIAN Nurse Practitioner Family
DX: N30.00 Acute cystitis without hematuria (principal)
CPT/HCPCS: 81003; 81015

== ENCOUNTER → 2025-03-05 07:36 | Outpatient (REF) | payer MEDICARE, OTHER, SELFPAY ==
[2025-03-05 08:50] LABS: Hematocrit 40.3 % (37.0-47.0); Hemoglobin 13.1 g/dL (12.0-16.0); Mean Corp Hgb Conc. 32.5 g/dL (33.0-37.0); Mean Corpuscular Volume 91.8 fL (81.0-99.0); Nucleated Red Blood Cells % 0 %; Platelet Count 169 10^3/uL (130-400); Red Cell Dist. Width 12.9 % (11.5-14.5)
[2025-03-05 09:31] LABS: ALT (SGPT) 18 U/L (0-35); AST (SGOT) 22 U/L (14-36); Albumin 4.3 g/dl (3.5-5.0); Alkaline Phosphatase 58 U/L (38-126); Blood Urea Nitrogen 18 mg/dl (7-17); Calcium 9.9 mg/dl (8.4-10.2); Carbon Dioxide 28 mmol/L (22-30); Chloride 106 mmol/L (98-107); Glucose 116 mg/dl (70-99); Potassium 5.0 mmol/L (3.5-5.1); Sodium 139 mmol/L (135-145); Total Protein 6.5 g/dl (6.3-8.2); eGFR 50.80
[2025-03-05 09:33] LABS: Vitamin D, 25-OH*** 70.5 ng/mL (30-80)
== END ==
LOC: REG 07:36
PROVIDERS: ATTENDING PHYSICIAN Internal Medicine Rheumatology; FAMILY PHYSICIAN Internal Medicine Geriatric Medicine
DX: E55.9 Vitamin D deficiency, unspecified (principal); M81.0 Age-related osteoporosis without current pathological fracture; Z51.81 Encounter for therapeutic drug level monitoring
CPT/HCPCS: 36415; 80053; 82306; 85025

== ENCOUNTER 2025-04-10 08:20 | Emergency (ER) | payer MEDICARE, OTHER, SELFPAY ==
[2025-04-10 08:20] VITALS: BP 169/84
--- NOTE | 2025-04-10 08:42 | ED.GENMED ---
History of Present Illness
General
Chief Complaint: Abdominal Symptoms
Source: patient
Exam Limitations: none
Time Seen by Provider: 04/10/25 08:29
Nursing documentation reviewed up to this point in time: agreed with
History of Present Illness
History of Present Illness:
Patient is an 79-year-old female with past medical history of hyperlipidemia mitral regurg heart murmur presents to the ER for evaluation. She woke up this morning at 230 morning feeling nauseous had indigestion and noticed her right arm was
tingling and achy. Symptoms have been persistent since. She did note that her blood pressure was elevated several times throughout the early childhood. She is not on blood pressure medication typically has a low blood pressure. She denies any
associated chest pain shortness of breath. She does admit to eating spicy dinner last night. She has no history of ACS. She does not smoke. She denies any headache blurry vision or weakness in upper or lower extremities. Denies any speech
difficulty. She denies any recent trauma neck pain. She does have some chronic right shoulder issues shoulder/shoulder discomfort but this is from playing tennis.
Past History
Past History
ED Past Medical History: Valvular disease
ED Past Surgical History: None
Social History
Tobacco: Former smoker
Alcohol: Occasional
Drug: None
Personal:
Living: with family
Employment: Retired
Phy Exam
General Physical Exam
General Presentation: no apparent distress
General age: appears stated age
General Skin: warm and dry
General Habitus: normal
General Mental: alert
General Hydration: appears well hydrated
Cardiovascular Exam
Cardiovascular Exam: regular rate/rhythm, no murmur and normal peripheral pulses
Pulmonary Exam
Pulmonary Exam: lungs clear and no respiratory distress
Neurological Exam
Neurological Exam: alert, oriented x3, no motor deficits, no sensory deficits and speech normal
Kathy Coma Scale
Eye Opening: Spontaneous
Verbal Response: Oriented
Motor Response: Obeys Commands
GCS Total Score: 15
Musculoskeletal Exam
Musculoskeletal Exam: full ROM
Skin Exam
Skin Exam: normal color and warm/dry
Psychiatric Exam
Psychiatric Exam: normal mood/affect
Course
Orders/Labs/Results
Orders:
Orders
04/10/25 08:23
Electrocardiogram (*1) Urgent
Reason for Study: Hypertension, Benign
EKG- Treatment ONCE
04/10/25 08:41
Cardiac Monitoring- Treatment ONCE
IV Insert/Care/Rem.- Treatment PRN
0.9% Sodium Chloride 1000 ml [Nss] 1,000 ml IV BOLUS
Famotidine [Pepcid] 20 mg IV NOW STA
Ondansetron Injectable [Zofran] 4 mg IV NOW STA
04/10/25 09:01
Complete Blood Count/With Diff Urgent
Comprehensive Metabolic Panel Urgent
Troponin I Urgent
04/10/25 10:59
EKG- Treatment ONCE
04/10/25 12:00
Electrocardiogram (*1) Urgent
Reason for Study: Chest Pain
04/10/25 12:15
Troponin I Urgent
Abnormal Lab Results
04/10/25
09:01
RBC 4.11 L 10^6/uL
(4.20-5.40)
Hct 36.8 L %
(37.0-47.0)
MPV 10.9 H fL
(7.4-10.4)
BUN 20 H mg/dl
(7-17)
Glucose 107 H mg/dl
(70-99)
04/10/25 09:01
04/10/25 09:01
Vital Signs
Initial and Last Documented VS:
Initial Vital Signs
Temp Pulse Resp BP Pulse Ox
98 F 66 16 169/84 99
04/10/25 08:20 04/10/25 08:20 04/10/25 08:20 04/10/25 08:20 04/10/25 08:20
Last Documented Vital Signs
Temp Pulse Resp BP Pulse Ox
98 F 58 14 122/94 92
04/10/25 08:20 04/10/25 10:30 04/10/25 10:30 04/10/25 10:00 04/10/25 10:30
Mica Laminating Machine Feeder consulted with Physician
Mica Laminating Machine Feeder consulted with physician?: Yes
Name of Physician Consulted: ricardo
MDM/Problems Addressed
Differential Diagnosis Includes:
Mild hyperlipidemia
MDM/Problems Addressed:
As documented. Patient presented with indigestion and mild aching numbness tingling right arm around this morning. She noted that last night she ate a very spicy meal. She had no associated chest pain, shortness of breath or headache. she
reported her blood pressure was elevated at that time.
She has no cardiac history is very active, plays tennis, no history of ACS or stroke. She presented awake alert no acute distress. No neurological deficit normal sensation throughout. No headache. no chest pain. Speech is clear. She was given
Pepcid and Zofran and was monitored feeling much better. All symtpoms resolved.
Patient had 2 normal EKGs and normal cardiac troponins. Stable for discharge home. Case reviewed ED physician. Patient still with minimally elevated blood pressure however very well-appearing
Chronic conditions affecting care:
Mild hyperlipidemia
*Pulse Oximetry
SaO2: 99
Oxygen Mode of Delivery: Room air
Patient hypoxic: no
*Critical Care Note
Total Time (30-74mins, 75-104mins- exclusive of procedures): Not Applicable
ED Attending Note
-
Portions of this chart may have been created with voice recognition software.� Occasional wrong word or��sound alike� substitutions may have occurred due to the inherent limitations of voice recognition software.
Discharge Plan
Departure
Patient Disposition: Home (Routine Discharge)
Date of Disposition: 04/10/25
Time of Disposition: 13:18
Patient with high blood pressure during this ER visit?: Yes
Condition: Fair
Covid-19: Not Applicable
Discharge Problem:
elevated blood pressure
Instructions: BLOOD PRESSURE
Prescriptions:
No Action
therapeutic multivitamin Tablet
1 tab PO QPM
methenamine hippurate 1 gram Tablet
1 g PO DAILY
pantoprazole 40 mg Tablet,Delayed Release (Dr/Ec)
40 mg PO DAILYPRN PRN (Reason: gerd)
celecoxib 100 mg Capsule
100 mg PO DAILY
simethicone 80 mg Tablet,Chewable
160 mg PO DAILYPRN PRN (Reason: gas)
rosuvastatin 5 mg Tablet
5 mg PO QPM
calcium carbonate-vitamin D3 [Calcium 600 + D(3)] 600 mg-10 mcg (400 unit) Tablet
1 tab PO QPM
Visbiome 112.5 billion cell Capsule
1 cap PO QPM
diclofenac sodium 1 % Gel
2 g TOPICAL DAILYPRN PRN (Reason: hands)
Prolia 60 mg/mL Syringe
60 mg SC [id number]
acetaminophen [acetaminophen] 325 mg tablet
650 mg PO Q4HPRN PRN (Reason: mild pain) Qty: 1 0RF
oxycodone 5 mg tablet
5 mg PO Q4HPRN PRN (Reason: breakthrough/severe pain) Qty: 5 0RF
cephalexin 500 mg capsule
500 mg PO Q6H Qty: 28 0RF
Referrals:
Zuhair Mackay MD [Family Provider, Internal Medicine]
Activity Restrictions/Additional Instructions:
As discussed please see your family doctor in the next several days for reevaluation of your symptoms and elevated blood pressure. Your cardiac blood work was negative . Your blood pressure was elevated however has decreased here in the ER. You
were mildly dehydrated on your blood work and were given IV fluids. Return to the ER for any worsening of symptoms
Interventions
Interventions:
*Risk Screen - Suicide Last Done: 04/10/25 08:24
*General Assessment Last Done: 04/10/25 09:30
*Neglect/Abuse Screening Last Done: 04/10/25 08:24
*ED- Fall Risk Assessment Last Done: 04/10/25 09:30
*ED COVID-19 Vaccine History Last Done: 04/10/25 09:30
*ED Influenza Vaccine History Last Done: 04/10/25 09:30
FV-Lmfqmb-Yftbyktccc Assessment Last Done: 04/10/25 09:31
Discharge Date and Time
Print Language: LAO
[2025-04-10 08:53] VITALS: BMI 24.1
[2025-04-10] MEDS: ZOFRAN 4 MG IV (09:00)
[2025-04-10] MEDS: NSS 1000 IV (09:00)
[2025-04-10] MEDS: PEPCID 20 MG IV (09:01)
[2025-04-10 09:06] VITALS: BP 143/63
[2025-04-10 09:20] LABS: Hematocrit 36.8 % (37.0-47.0); Hemoglobin 12.3 g/dL (12.0-16.0); Mean Corp Hgb Conc. 33.4 g/dL (33.0-37.0); Mean Corpuscular Volume 89.5 fL (81.0-99.0); Nucleated Red Blood Cells % 0 %; Platelet Count 154 10^3/uL (130-400); Red Cell Dist. Width 12.7 % (11.5-14.5)
[2025-04-10 09:38] LABS: ALT (SGPT) 15 U/L (0-35); AST (SGOT) 20 U/L (14-36); Albumin 4.0 g/dl (3.5-5.0); Alkaline Phosphatase 64 U/L (38-126); Blood Urea Nitrogen 20 mg/dl (7-17); Calcium 9.8 mg/dl (8.4-10.2); Carbon Dioxide 30 mmol/L (22-30); Chloride 106 mmol/L (98-107); Estimated Creatinine Clearance 31 ml/min; Glucose 107 mg/dl (70-99); Potassium 4.6 mmol/L (3.5-5.1); Sodium 141 mmol/L (135-145); Total Protein 6.3 g/dl (6.3-8.2); eGFR 56.95
[2025-04-10 09:48] LABS: Troponin I < 0.012 ng/ml
[2025-04-10 10:00] VITALS: BP 122/94
[2025-04-10 11:20] VITALS: BP 132/69
[2025-04-10 12:00] VITALS: BP 144/66
[2025-04-10 12:54] LABS: Troponin I < 0.012 ng/ml
[2025-04-10 13:00] VITALS: BP 140/70
== END 2025-04-10 13:46 | disposition home or self-care (01) ==
LOC: EMR 08:20
PROVIDERS: Nurse Practitioner; EMERGENCY PHYSICIAN Emergency Medicine; FAMILY PHYSICIAN Internal Medicine Geriatric Medicine
DX: I10 Essential (primary) hypertension (principal); E78.00 Pure hypercholesterolemia, unspecified; R01.1 Cardiac murmur, unspecified; I38 Endocarditis, valve unspecified; Z87.891 Personal history of nicotine dependence
CPT/HCPCS: 99283; 96374; 96375; 96361; 80053; 84484; 85025; 93005